=== PATIENT | female | born 1945 | race Caucasian/White ===

== ENCOUNTER → 2016-09-03 | Outpatient (CLI) | payer OTHER ==
--- NOTE | 2016-09-03 12:16 | RAD ---
HISTORY: Abdominal pain Study: Acute abdominal series Comparison: None Findings: The trachea is midline. The cardiac silhouette is unremarkable. The lungs are clear without focal infiltrate or effusion. The bony thorax is unremarkable. There is a hiatal hernia present. Flat plate and upright evaluation of the abdomen demonstrates a normal bowel gas pattern. No pneumop eritoneum is identified.. No pathological soft tissue mass or calcification can be observed. The b arpita structures are grossly intact. Lumbar levo rotoscoliosis is present. IMPRESSION: 1. No acute cardiopulmonary disease. 2. No evidence for acute abdominal pathology identified. 3. Hiatal hernia Reported By:
== END | disposition home or self-care (01) ==
LOC: RAD 11:42
PROVIDERS: ATTEND Obstetrics & Gynecology Obstetrics
DX: R10.84 Generalized abdominal pain (principal); K44.9 Diaphragmatic hernia without obstruction or gangrene
CPT/HCPCS: 74022

== ENCOUNTER → 2016-11-17 | Outpatient (CLI) | payer OTHER, MEDICAID ==
--- NOTE | 2016-11-19 12:59 | RAD ---
HISTORY: Weight loss. Study: Acute abdominal series Comparison: Acute abdominal series dated August 04, 2016. Findings: The trachea is midline. The cardiac silhouette is unchanged. The lungs are clear without focal infi ltrate or effusion. The bony thorax is unremarkable. Moderate-sized hiatal hernia. Ectatic thoracic aorta. Flat plate and upright evaluation of the abdomen demonstrates a nonspecific/nonobstructive bowel gas pattern with air and large amounts of stool to the level of the rectum. No obvious free air. No path ological soft tissue mass or calcification can be observed. The bony structures appear unchanged. IMPRESSION: 1. No acute cardiopulmonary disease. 2. No evidence for acute abdominal pathology identified. Reported By:
== END | disposition home or self-care (01) ==
LOC: RAD 10:45
PROVIDERS: ATTEND Obstetrics & Gynecology Obstetrics
DX: I10 Essential (primary) hypertension (principal); R11.2 Nausea with vomiting, unspecified; R63.4 Abnormal weight loss; E03.8 Other specified hypothyroidism
CPT/HCPCS: 74022

== ENCOUNTER → 2016-11-20 | Outpatient (CLI) | payer OTHER, MEDICAID ==
[2016-11-20 10:44] LABS: BASOPHILS # (AUTO) 0.1 X10^3/uL (0.0-0.1); BASOPHILS % (AUTO) 0.6 % (0.2-1.0); EOSINOPHILS # (AUTO) 0.1 x10^3/uL (0.0-0.2); EOSINOPHILS % (AUTO) 0.9 % (0.9-2.9); HEMATOCRIT 27.3 % (36.0-47.0); HEMOGLOBIN 9.2 g/dL (12.0-16.0); LYMPHOCYTES # (AUTO) 0.7 X10^3/uL (1.3-2.9); LYMPHOCYTES % (AUTO) 7.4 % (21.0-51.0); MEAN CORPUSCULAR HEMOGLOBIN 31.8 pg (27.0-34.0); MEAN CORPUSCULAR HGB CONC 33.5 g/dL (33.0-35.0); MEAN CORPUSCULAR VOLUME 94.7 fL (80.0-100.0); MEAN PLATELET VOLUME 6.6 fL (7.4-11.0); MONOCYTES # (AUTO) 0.9 x10^3/uL (0.3-0.8); MONOCYTES % (AUTO) 9.2 % (0.0-13.0); NEUTROPHILS # (AUTO) 7.9 x10^3/uL (2.2-4.8); NEUTROPHILS % (AUTO) 81.9 % (42.0-75.0); PLATELET COUNT 433 X10^3/uL (150.0-450.0); RED BLOOD COUNT 2.88 X10^6/uL (3.5-5.4); RED CELL DISTRIBUTION WIDTH 14.7 % (11.6-16.5); WHITE BLOOD COUNT 9.6 X10^3/uL (3.6-10.0)
[2016-11-20 11:06] LABS: ALANINE AMINOTRANSFERASE 21 Units/L (12-78); ALBUMIN 2.8 g/dL (3.4-5.0); ALKALINE PHOSPHATASE 103 Units/L (46-116); ASPARTATE AMINO TRANSFERASE 18 Units/L (15-37); BLOOD UREA NITROGEN 64 mg/dL (7-18); CALCIUM 9.3 mg/dL (8.5-10.1); CARBON DIOXIDE 21.1 mmol/L (21-32); CHLORIDE 105 mmol/L (98-107); CHOL/HDL RATIO 2.7 (0.0-5.0); CHOLESTEROL 117 mg/dL (0-200); COR CA(FOR HYPOALB) 10.3 mg/dL (8.5-10.1); CREATININE 1.63 mg/dL (0.55-1.02); HDL CHOLESTEROL 44 mg/dL (40-60); SODIUM 137 mmol/L (136-145); TOTAL PROTEIN 6.9 g/dL (6.4-8.2); TRIGLYCERIDES 91 mg/dL (0-150); TSH (3RD GENERATION) 3.493 uIU/mL (0.358-3.74); eGFR BLACK RACES 40 (>60); eGFR NON BLACK RACES 33 (>60)
[2016-11-24 06:23] LABS: T3 REVERSE 33.1 ng/dL (9.0-27.0)
== END ==
LOC: LAB 10:06
PROVIDERS: ATTEND Obstetrics & Gynecology Obstetrics
DX: I10 Essential (primary) hypertension (principal); E03.8 Other specified hypothyroidism; R63.4 Abnormal weight loss
CPT/HCPCS: 36415; 80053; 80061; 83525; 84443; 84481; 84482; 85025

== ENCOUNTER → 2017-01-15 | Outpatient (CLI) | payer OTHER, MEDICAID ==
[2017-01-15 13:52] LABS: BASOPHILS # (AUTO) 0.1 X10^3/uL (0.0-0.1); BASOPHILS % (AUTO) 0.9 % (0.2-1.0); EOSINOPHILS # (AUTO) 0.2 x10^3/uL (0.0-0.2); EOSINOPHILS % (AUTO) 2.1 % (0.9-2.9); HEMATOCRIT 27.9 % (36.0-47.0); HEMOGLOBIN 8.8 g/dL (12.0-16.0); LYMPHOCYTES # (AUTO) 1.2 X10^3/uL (1.3-2.9); LYMPHOCYTES % (AUTO) 16.9 % (21.0-51.0); MEAN CORPUSCULAR HGB CONC 31.7 g/dL (33.0-35.0); MEAN CORPUSCULAR VOLUME 78.9 fL (80.0-100.0); MEAN PLATELET VOLUME 7.2 fL (7.4-11.0); MONOCYTES # (AUTO) 0.5 x10^3/uL (0.3-0.8); MONOCYTES % (AUTO) 6.8 % (0.0-13.0); NEUTROPHILS # (AUTO) 5.3 x10^3/uL (2.2-4.8); NEUTROPHILS % (AUTO) 73.3 % (42.0-75.0); PLATELET COUNT 361 X10^3/uL (150.0-450.0); RED BLOOD COUNT 3.54 X10^6/uL (3.5-5.4); RED CELL DISTRIBUTION WIDTH 21.1 % (11.6-16.5); WHITE BLOOD COUNT 7.2 X10^3/uL (3.6-10.0)
[2017-01-15 14:11] LABS: ANISOCYTOSIS SLIGHT; HYPOCHROMASIA SLIGHT; MICROCYTOSIS SLIGHT; PLATELET MORPHOLOGY COMMENT NORMAL (NORMAL)
[2017-01-15 14:17] LABS: ALANINE AMINOTRANSFERASE 28 Units/L (12-78); ALBUMIN 3.8 g/dL (3.4-5.0); ALKALINE PHOSPHATASE 248 Units/L (46-116); ASPARTATE AMINO TRANSFERASE 24 Units/L (15-37); BLOOD UREA NITROGEN 87 mg/dL (7-18); CARBON DIOXIDE 28.1 mmol/L (21-32); CHLORIDE 99 mmol/L (98-107); CHOL/HDL RATIO 2.3 (0.0-5.0); CHOLESTEROL 190 mg/dL (0-200); COR NA(FOR HYPERGLY) 138 mmol/L (136-145); CREATININE 3.42 mg/dL (0.55-1.02); HDL CHOLESTEROL 83 mg/dL (40-60); SODIUM 138 mmol/L (136-145); TOTAL PROTEIN 7.6 g/dL (6.4-8.2); TRIGLYCERIDES 131 mg/dL (0-150); TSH (3RD GENERATION) 8.523 uIU/mL (0.358-3.74); eGFR BLACK RACES 17 (>60); eGFR NON BLACK RACES 14 (>60)
[2017-01-15 14:26] LABS: CALCIUM 13.3 mg/dL (8.5-10.1)
[2017-01-15 14:31] LABS: PREALBUMIN 45.4 mg/dL (18-35.7)
--- NOTE | 2017-01-15 14:45 | RAD ---
Examination: Abdomen with PA chest History: Weight loss, leg pain Comparison reference: 11/17/2016 Findings: PA chest demonstrates borderline to mild cardiomegaly with dilated aorta, hiatal hernia, cl ear lungs and pleural spaces. In the abdomen, there is fecal distention of the colon. No ascites, consuelo e air or pathologic calcification is seen. Soft tissue density in the pelvic cavity may represent dis tended bladder. Impression: 1. Mild cardiomegaly with aortic ectasia. Intrathoracic hiatal hernia. 2. Intestinal gas pattern consistent with constipation; correlate clinically. 3. Increased soft tissue density in the pelvic cavity may represent distention of urinary bladder. Co rrelate for other pelvic mass formation. Reported By:
== END ==
LOC: LAB 13:22
PROVIDERS: ATTEND Obstetrics & Gynecology Obstetrics
DX: R63.4 Abnormal weight loss (principal); I10 Essential (primary) hypertension; E03.8 Other specified hypothyroidism
CPT/HCPCS: 36415; 74022; 80053; 80061; 83525; 84134; 84443; 84481; 84482; 85025